=== PATIENT | male | born 1990 | race Caucasian/White ===

== ENCOUNTER 2018-02-03 19:03 | Emergency (ER) | payer SELFPAY ==
[2018-02-03 19:04] VITALS: BP 124/69
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
== END 2018-02-03 20:09 | disposition home or self-care (01) ==
LOC: LL.ED 19:03
DX: S01.01XA Laceration without foreign body of scalp, initial encounter (principal); F17.210 Nicotine dependence, cigarettes, uncomplicated; W26.8XXA Contact with other sharp object(s), not elsewhere classified, initial encounter
CPT/HCPCS: 12001; 99282